=== PATIENT | male | born 1995 | race Two or more races ===

== ENCOUNTER 2022-02-20 12:00 | Emergency (ER) | payer OTHER ==
[~2022-02-20] VITALS: Ht 152.4 cm; Wt 81.6 kg
[2022-02-20] MEDS ORDERED: KETO10TA2 PO (14:41)
== END 2022-02-20 15:08 | disposition home or self-care (01) ==
LOC: ER 12:00
DX: S49.92XA Unspecified injury of left shoulder and upper arm, initial encounter (principal); X50.0XXA Overexertion from strenuous movement or load, initial encounter; Y93.89 Activity, other specified; Y92.89 Other specified places as the place of occurrence of the external cause